=== PATIENT | male | born 1990 | race Caucasian/White ===

== ENCOUNTER → 2019-04-22 13:38 | Outpatient (BNVA) | payer MEDICAID, SELFPAY | PROVIDERS: Family Provider Internal Medicine; PCP Family Medicine; Visit Provider Nurse Practitioner | DX: F42.2 Mixed obsessional thoughts and acts (principal) | CPT/HCPCS: 99213 ==

== ENCOUNTER → 2019-06-03 12:52 | Outpatient (BNVA) | payer MEDICAID, SELFPAY | PROVIDERS: Family Provider Internal Medicine; PCP Family Medicine; Visit Provider Nurse Practitioner | DX: F42.2 Mixed obsessional thoughts and acts (principal) | CPT/HCPCS: 99213 ==

== ENCOUNTER → 2019-07-22 07:59 | Outpatient (BNVA) | payer MEDICAID, SELFPAY | PROVIDERS: Family Provider Internal Medicine; PCP Family Medicine; Visit Provider Nurse Practitioner | DX: F42.2 Mixed obsessional thoughts and acts (principal) | CPT/HCPCS: 99213 ==

== ENCOUNTER → 2019-10-09 08:30 | Outpatient (BNVA) | payer MEDICAID, SELFPAY | PROVIDERS: Family Provider Internal Medicine; Visit Provider Nurse Practitioner | DX: F42.9 Obsessive-compulsive disorder, unspecified (principal) | CPT/HCPCS: 99213 ==

== ENCOUNTER → 2019-10-31 08:33 | Outpatient (BNVA) | payer MEDICAID, SELFPAY | PROVIDERS: Family Provider Internal Medicine; Visit Provider Nurse Practitioner | DX: F42.9 Obsessive-compulsive disorder, unspecified (principal); F17.210 Nicotine dependence, cigarettes, uncomplicated | CPT/HCPCS: 99214 ==

== ENCOUNTER → 2019-12-02 09:33 | Outpatient (BNVA) | payer MEDICAID, SELFPAY | PROVIDERS: Family Provider Internal Medicine; Visit Provider Nurse Practitioner | DX: F42.9 Obsessive-compulsive disorder, unspecified (principal); F42.2 Mixed obsessional thoughts and acts; Z79.899 Other long term (current) drug therapy | CPT/HCPCS: 99213 ==

== ENCOUNTER 2019-12-13 09:27 | Outpatient (CLI) | payer MEDICAID, SELFPAY ==
[2019-12-13 10:25] LABS: Estmated Average Glucose 146; Hemoglobin A1C 6.7 % (4.0-6.0)
[2019-12-13 10:29] LABS: Cholesterol 206 mg/dL (0-200); HDL Cholesterol 29 mg/dL (60-100); LDL Cholesterol Calculated 141 mg/dL (50-129); LDL HDL Ratio 4.86 RATIO (0.00-3.22); Triglycerides 181 mg/dL (0-150)
== END 2019-12-13 09:28 | disposition home or self-care (01) ==
LOC: LAB 09:30
PROVIDERS: PCP Internal Medicine; Visit Provider Nurse Practitioner
DX: Z79.899 Other long term (current) drug therapy (principal)
CPT/HCPCS: 80061; 83036

== ENCOUNTER → 2020-03-31 07:49 | Outpatient (BNVA) | payer MEDICAID, SELFPAY | PROVIDERS: PCP Internal Medicine; Visit Provider Nurse Practitioner | DX: F42.9 Obsessive-compulsive disorder, unspecified (principal); F33.2 Major depressive disorder, recurrent severe without psychotic features | CPT/HCPCS: 99213 ==

== ENCOUNTER → 2020-05-27 07:41 | Outpatient (BNVA) | payer MEDICAID, SELFPAY | PROVIDERS: PCP Internal Medicine; Visit Provider Nurse Practitioner | DX: F42.9 Obsessive-compulsive disorder, unspecified (principal); F33.2 Major depressive disorder, recurrent severe without psychotic features; F42.2 Mixed obsessional thoughts and acts | CPT/HCPCS: 99214 ==

== ENCOUNTER → 2020-07-20 13:37 | Outpatient (BNVA) | payer MEDICAID, SELFPAY | PROVIDERS: PCP Internal Medicine; Visit Provider Nurse Practitioner | DX: F42.9 Obsessive-compulsive disorder, unspecified (principal); F33.0 Major depressive disorder, recurrent, mild | CPT/HCPCS: 99214 ==

== ENCOUNTER → 2020-10-19 12:43 | Outpatient (BNVA) | payer MEDICAID, SELFPAY | PROVIDERS: PCP Internal Medicine; Visit Provider Nurse Practitioner | DX: F42.9 Obsessive-compulsive disorder, unspecified (principal); F33.0 Major depressive disorder, recurrent, mild | CPT/HCPCS: 99214 ==

== ENCOUNTER → 2020-12-21 07:26 | Outpatient (BNVA) | payer MEDICAID, OTHER, SELFPAY | PROVIDERS: PCP Internal Medicine; Visit Provider Nurse Practitioner | DX: F42.9 Obsessive-compulsive disorder, unspecified (principal); F33.0 Major depressive disorder, recurrent, mild | CPT/HCPCS: 99214 ==

== ENCOUNTER → 2021-02-02 13:25 | Outpatient (BNVA) | payer OTHER, SELFPAY | PROVIDERS: PCP Internal Medicine; Visit Provider Nurse Practitioner | DX: F33.0 Major depressive disorder, recurrent, mild (principal); Z79.899 Other long term (current) drug therapy | CPT/HCPCS: 80061; 83036 ==

== ENCOUNTER → 2021-07-29 12:45 | Outpatient (BNVA) | payer MEDICAID, SELFPAY ==
[2021-02-04 11:24] VITALS: BP 128/84; BMI 41.7
== END ==
PROVIDERS: PCP Internal Medicine; Visit Provider Nurse Practitioner
DX: F33.0 Major depressive disorder, recurrent, mild (principal); F42.9 Obsessive-compulsive disorder, unspecified
CPT/HCPCS: 99214

== ENCOUNTER → 2021-09-09 12:51 | Outpatient (BNVA) | payer MEDICAID, SELFPAY ==
[2021-09-07 10:02] VITALS: BP 128/84; BMI 41.7
== END ==
PROVIDERS: PCP Internal Medicine; Visit Provider Nurse Practitioner
DX: F42.9 Obsessive-compulsive disorder, unspecified (principal); F33.0 Major depressive disorder, recurrent, mild
CPT/HCPCS: 99214

== ENCOUNTER → 2022-02-25 11:29 | Outpatient (BNVA) | payer MEDICAID, SELFPAY ==
[2022-02-14 07:23] VITALS: BP 128/84; BMI 41.7
== END ==
PROVIDERS: PCP Internal Medicine; Visit Provider Nurse Practitioner
DX: F33.0 Major depressive disorder, recurrent, mild (principal); Z79.899 Other long term (current) drug therapy
CPT/HCPCS: 80061; 83036

== ENCOUNTER → 2022-12-27 14:26 | Outpatient (BNVA) | payer MEDICAID, SELFPAY ==
[2022-09-29 10:09] VITALS: BP 147/92; BMI 46.1
== END ==
PROVIDERS: PCP Internal Medicine; Visit Provider Nurse Practitioner Family
DX: L40.0 Psoriasis vulgaris (principal); D22.5 Melanocytic nevi of trunk; L57.8 Other skin changes due to chronic exposure to nonionizing radiation; L81.4 Other melanin hyperpigmentation
CPT/HCPCS: 99204

== ENCOUNTER → 2023-03-23 09:50 | Outpatient (BNVA) | payer OTHER, SELFPAY ==
[2022-09-29 10:09] VITALS: BP 147/92; BMI 46.1
== END ==
PROVIDERS: PCP Internal Medicine; Visit Provider Nurse Practitioner
DX: F33.0 Major depressive disorder, recurrent, mild (principal); Z79.899 Other long term (current) drug therapy
CPT/HCPCS: 80061

== ENCOUNTER → 2024-05-15 09:48 | Outpatient (BNVA) | payer OTHER, SELFPAY ==
[2024-01-08 07:19] VITALS: BP 148/106; BMI 41.4
== END ==
PROVIDERS: PCP Internal Medicine; Visit Provider Nurse Practitioner
DX: F33.0 Major depressive disorder, recurrent, mild (principal); F42.9 Obsessive-compulsive disorder, unspecified; Z79.899 Other long term (current) drug therapy
CPT/HCPCS: 80061; 83036